=== PATIENT | female | born 1995 | race Two or more races ===

== ENCOUNTER 2022-06-11 07:53 | Emergency (ER) | payer OTHER ==
[2022-06-11 08:12] VITALS: BP 128/82; PULSE 116; RESP 18; TEMP 99.8; BMI 38.7
[2022-06-11] MEDS ORDERED: IBUPROFEN 600 MG TABLET (FP) PO ONE ×2 (09:43→10:09)
[2022-06-11] MEDS ORDERED: ONDANSETRON *ODT* 4 MG TABLET SL ONE (09:46)
[2022-06-11] MEDS ORDERED: ONDANSETRON *ODT* 4 MG TABLET ONE (10:10)
== END 2022-06-11 10:38 | disposition home or self-care (01) ==
LOC: JERFT 07:53 → JER 07:53
DX: J02.0 Streptococcal pharyngitis (principal)
CPT/HCPCS: 0241U-QW; 87651; 99283-25; Q0162

== ENCOUNTER 2022-06-13 13:48 | Emergency (ER) | payer OTHER | END 2022-06-13 14:15 | disposition home or self-care (01) | LOC: JVIRT 13:48 | DX: U07.1 COVID-19 (principal); J02.0 Streptococcal pharyngitis | CPT/HCPCS: Q3014-GT ==